=== PATIENT | female | born 1990 | race Caucasian/White ===

== ENCOUNTER 2019-10-19 17:02 | Inpatient (IN) | payer MEDICAID ==
[~2019-10-19] VITALS: Ht 160 cm; Wt 104.3 kg
[2019-10-19] MEDS ORDERED: PREN-380 PO (17:28)
[2019-10-19] MEDS ORDERED: METHYLERGONOVINE 0.2 MG/ML AMP IM PRN (17:30)
[2019-10-19] MEDS ORDERED: CARBOPROST 250 MCG/ML AMP IM PRN (17:30)
[2019-10-19] MEDS ORDERED: PROMETHAZINE 25 MG/ML VIAL IVP PRN (17:30)
[2019-10-19 17:39] VITALS: BP 133/74
[2019-10-19 18:16] LABS: BASOPHILS % (AUTO) 0.5 % (0.0-2.0); EOSINOPHILS # (AUTO) 0.1 K/uL (0-0.4); HEMOGLOBIN 11.8 g/dL (12.0-16.0); LYMPHOCYTES # (AUTO) 1.5 K/uL (2.5-16.5); LYMPHOCYTES % (AUTO) 15.2 % (20.5-51.1); MEAN CORPUSCULAR HEMOGLOBIN 25 pg (27-31); MEAN CORPUSCULAR HGB CONC 32 g/dL (33-37); MEAN CORPUSCULAR VOLUME 79.3 fL (80-94); MONOCYTES # (AUTO) 0.8 K/uL (0.8-1.0); MONOCYTES % (AUTO) 7.4 % (1.7-9.3); NEUTROPHILS # (AUTO) 7.8 K/uL (1.8-7.7); NEUTROPHILS % (AUTO) 75.9 % (42.2-75.2); PLATELET COUNT (AUTO) 151 K/uL (140-450); RED BLOOD CELL COUNT(AUTO) 4.67 MIL/uL (4.20-5.40); RED CELL DISTRIBUTION WIDTH 16.4 % (11.6-13.7); WHITE BLOOD COUNT (AUTO) 10.2 K/uL (4.8-10.8)
[2019-10-19 18:20] LABS: APPEARANCE,URINE CLEAR (CLEAR); BILIRUBIN,URINE NEGATIVE (NEGATIVE); BLOOD, URINE TRACE-I (NEGATIVE); COLOR,URINE YELLOW (YELLOW); LEUKOCYTE ESTERASE ,URINE NEGATIVE (NEGATIVE); NITRITE, URINE NEGATIVE (NEGATIVE); UGLUCOSE NEGATIVE (NEGATIVE)
[2019-10-19] MEDS: LACTATED RINGERS 1,000 ML IV SCH (19:40)
[2019-10-19] MEDS: MISOPROSTOL 25 MCG TAB VG SCH (19:57)
[2019-10-20] MEDS: LACTATED RINGERS 1,000 ML IV SCH ×3 (00:24→10:56)
[2019-10-20] MEDS: MISOPROSTOL 25 MCG TAB VG SCH ×3 (00:27→08:42)
--- NOTE | 2019-10-20 09:34 | NUR ---
PATIENT HAS BEEN SCREENED AND CATEGORIZED LOW NUTRITION RISK. PATIENT WILL BE SEEN WITHIN 7 DAYS OF ADMISSION. 10/26/[address]
[2019-10-20] MEDS ORDERED: ROPIVACAINE 0.2%/NS PREMIX 200 ML EPI ONE (10:10)
[2019-10-20] MEDS ORDERED: CITRIC ACID/SODIUM CITRATE 30 ML UDC PO SCH (11:54)
[2019-10-20] MEDS ORDERED: ceFAZolin 1,000 MG VIAL ONE (12:00)
[2019-10-20] MEDS ORDERED: PROPOFOL 200 MG/20 ML VIAL IV ONE (13:00)
[2019-10-20] MEDS ORDERED: MORPHINE PRES FREE 10 MG/10 ML AMP IV ONE ×2 (13:00→13:01)
[2019-10-20] MEDS ORDERED: ONDANSETRON 4 MG/2 ML VIAL ONE ×2 (13:00→13:22)
[2019-10-20] MEDS ORDERED: MIDAZOLAM 2 MG/2 ML VIAL ONE ×2 (13:00→13:21)
[2019-10-20] MEDS ORDERED: LIDOCAINE MPF 2% 100 MG/5 ML VIAL INJ ONE (13:01)
[2019-10-20] MEDS ORDERED: OXYTOCIN 20 UNITS in LACTATED RINGERS 1,000 ML IV SCH ×2 (13:02→13:17)
[2019-10-20] MEDS ORDERED: SODIUM BICARBONATE 8.4% PFS 50 MEQ/50 ML SYR IVP ONE (13:02)
[2019-10-20] MEDS ORDERED: METHYLERGONOVINE 0.2 MG/ML AMP IM PRN (13:05)
[2019-10-20] MEDS ORDERED: MAGNESIUM CITRATE 300 ML BTL PO SCH (13:05)
[2019-10-20] MEDS ORDERED: TEMAZEPAM 15 MG CAP PO PRN (13:05)
[2019-10-20] MEDS ORDERED: diphenhydrAMINE 50 MG/ML VIAL IVP PRN (13:20)
[2019-10-20] MEDS ORDERED: NALOXONE 0.4 MG/ML VIAL IVP PRN ×2 (13:20)
[2019-10-20] MEDS ORDERED: ONDANSETRON 4 MG/2 ML VIAL IVP PRN (13:20)
[2019-10-20] MEDS ORDERED: KETOROLAC 30 MG/ML VIAL IVP PRN (13:20)
[2019-10-20] MEDS ORDERED: diphenhydrAMINE 50 MG/ML VIAL ONE (13:22)
[2019-10-20] MEDS ORDERED: OXYTOCIN 20 UNITS/LR PREMIX 1,000 ML IV ONE (13:22)
[2019-10-20] MEDS: KETOROLAC 30 MG/ML VIAL IVP PRN (14:30)
[2019-10-20] MEDS: DOCUSATE SOD/SENNA 50/8.6 MG 1 TAB PO SCH (21:00)
[2019-10-20] MEDS: SENNA 8.6 MG TAB PO SCH (21:00)
[2019-10-21] MEDS ORDERED: OXYTOCIN 20 UNITS/LR PREMIX 1,000 ML IV ONE (05:23)
[2019-10-21 06:51] LABS: BASOPHILS % (AUTO) 0.4 % (0.0-2.0); EOSINOPHILS % (AUTO) 0.2 % (0.0-4.0); HEMATOCRIT 29.4 % (36-48); HEMOGLOBIN 9.7 g/dL (12.0-16.0); LYMPHOCYTES # (AUTO) 1.2 K/uL (2.5-16.5); LYMPHOCYTES % (AUTO) 9.6 % (20.5-51.1); MEAN CORPUSCULAR HEMOGLOBIN 26 pg (27-31); MEAN CORPUSCULAR HGB CONC 33 g/dL (33-37); MEAN CORPUSCULAR VOLUME 78.7 fL (80-94); MONOCYTES # (AUTO) 0.9 K/uL (0.8-1.0); MONOCYTES % (AUTO) 7.2 % (1.7-9.3); NEUTROPHILS # (AUTO) 10.7 K/uL (1.8-7.7); NEUTROPHILS % (AUTO) 82.6 % (42.2-75.2); PLATELET COUNT (AUTO) 119 K/uL (140-450); RED BLOOD CELL COUNT(AUTO) 3.73 MIL/uL (4.20-5.40); RED CELL DISTRIBUTION WIDTH 16.2 % (11.6-13.7); WHITE BLOOD COUNT (AUTO) 12.9 K/uL (4.8-10.8)
[2019-10-21] MEDS: SODIUM PHOSPHATE 118 ML ENEM RC SCH (08:00)
[2019-10-21] MEDS: KETOROLAC 30 MG/ML VIAL IVP PRN (08:02)
[2019-10-21] MEDS: HYDROcodone/APAP 5/325 MG 1 TAB TAB PO PRN ×2 (09:26→13:20)
[2019-10-21] MEDS: SIMETHICONE 80 MG TAB.CHEW PO PRN ×2 (09:26→13:20)
[2019-10-21] MEDS: IBUPROFEN 800 MG TAB PO PRN (14:04)
[2019-10-21] MEDS: oxyCODONE/APAP 5/325 MG 1 TAB TAB PO PRN (19:52)
[2019-10-21] MEDS: DOCUSATE SOD/SENNA 50/8.6 MG 1 TAB PO SCH (20:55)
[2019-10-22] MEDS: oxyCODONE/APAP 5/325 MG 1 TAB TAB PO PRN ×2 (02:04→08:48)
[2019-10-22] MEDS: SIMETHICONE 80 MG TAB.CHEW PO PRN (08:49)
[2019-10-22] MEDS: SODIUM PHOSPHATE 118 ML ENEM RC SCH (09:11)
[2019-10-22] MEDS: IBUPROFEN 800 MG TAB PO PRN ×2 (13:17→19:52)
[2019-10-22] MEDS: DOCUSATE SOD/SENNA 50/8.6 MG 1 TAB PO SCH (21:29)
[2019-10-22] MEDS: SENNA 8.6 MG TAB PO SCH (21:29)
[2019-10-22] MEDS: HYDROcodone/APAP 5/325 MG 1 TAB TAB PO PRN (23:44)
[2019-10-23] MEDS ORDERED: CAMERA MC ONE (00:06)
[2019-10-23] MEDS: SIMETHICONE 80 MG TAB.CHEW PO PRN (09:35)
[2019-10-23] MEDS: SODIUM PHOSPHATE 118 ML ENEM RC SCH (09:36)
[2019-10-23] MEDS ORDERED: FERR325E14 PO (10:21)
[2019-10-23] MEDS ORDERED: HYDR-5122 PO (10:22)
[2019-10-23] MEDS ORDERED: IBUP-2213 PO (10:23)
[2019-10-23] MEDS: oxyCODONE/APAP 5/325 MG 1 TAB TAB PO PRN (10:51)
== END 2019-10-23 14:37 | disposition home or self-care (01) | DRG 540 ==
LOC: MFCC 17:02
PROVIDERS: ADMIT Obstetrics & Gynecology; ATTEND Obstetrics & Gynecology
PROC: 3E0P7VZ Introduction of Hormone into Female Reproductive, Via Natural or Artificial Opening (ICD-10-PCS; 2019-10-19)
PROC: 10D00Z1 Extraction of Products of Conception, Low, Open Approach (ICD-10-PCS; principal; 2019-10-20 13:00)
DX: O48.0 Post-term pregnancy (principal); R71.0 Precipitous drop in hematocrit; O61.9 Failed induction of labor, unspecified; Z37.0 Single live birth; Z3A.40 40 weeks gestation of pregnancy; E66.3 Overweight
CPT/HCPCS: 36415; 51702; 59200; 76815; 81003; 85025; 86592; 86886; 86900; 86901; J0690; J1200; J1885; J2001; J2250; J2270; J2405; J2590; J2704; J2795; J7060; J7120; Q0092

== ENCOUNTER 2022-01-19 07:17 | Emergency (ER) | payer MEDICAID, OTHER ==
[~2022-01-19] VITALS: Ht 160 cm; Wt 91.3 kg
[~2022-01-19 07:17] MED LIST: FERR325E14 PO; HYDR-5122 PO; IBUP-2213 PO; PREN-380 PO
[2022-01-19 07:29] VITALS: BP 132/89
--- NOTE | 2022-01-19 07:38 | NUR ---
Patient ambulated to bed 5 with steady gait.
--- NOTE | 2022-01-19 07:40 | NUR ---
31 y/o female c/o non-radiating left flank pain x 3 days that came on suddenly. Denies injury or trauma. Denies nvd, fever, cp, dysuria. LBM 01/17. Reports 12/31 sharp pain that increases when prompting deep breaths. Guarding noted upon palpation. Did not take any medication and is unaware of any relieving factors. NKA PMH: Denies Meds: None
--- NOTE | 2022-01-19 07:43 | NUR ---
Dr. Bolden evaluating patient at bedside.
[2022-01-19] MEDS ORDERED: KETOROLAC 30 MG/ML VIAL IM ONE (07:50)
[2022-01-19] MEDS ORDERED: LIDOCAINE 5% 1 EA PATCH TP SCH (07:50)
--- NOTE | 2022-01-19 08:05 | NUR ---
Radiology at bedside
--- NOTE | 2022-01-19 08:05 | NUR ---
xray at bedside
--- NOTE | 2022-01-19 08:44 | NUR ---
Dr. Bolden re-evaluating patient at bedside.
[2022-01-19] MEDS ORDERED: DICL100G5 TP (08:50)
[2022-01-19] MEDS ORDERED: LID5T TP (08:50)
[2022-01-19] MEDS ORDERED: IBUP-1842 PO (08:50)
[2022-01-19] MEDS ORDERED: CYCL-711 PO (08:50)
[2022-01-19 09:05] VITALS: BP 119/69
--- NOTE | 2022-01-19 09:05 | NUR ---
Patient discharged with v/s stable. Written and verbal after care instructions given and explained. Patient alert, oriented and verbalized understanding of instructions. Ambulatory with steady gait. All questions addressed prior to discharge. ID band removed. Patient advised to follow up with PMD. Rx of Flexeril, Lidocaine, Diclofenac, Motrin given. Patient educated on indication of medication including possible reaction and side effects. Opportunity to ask questions provided and answered.
== END 2022-01-19 09:05 | disposition home or self-care (01) ==
LOC: MED 07:17
DX: S29.011A Strain of muscle and tendon of front wall of thorax, initial encounter (principal); X58.XXXA Exposure to other specified factors, initial encounter; Y93.89 Activity, other specified; Y92.89 Other specified places as the place of occurrence of the external cause; Y99.8 Other external cause status
CPT/HCPCS: 71045; 81002; 81025; 96372; 99283; J1885; Q0092